=== PATIENT | male | born 1980 | race Caucasian/White ===

== ENCOUNTER 2024-06-26 19:33 | Emergency (ER) | payer BC, SELFPAY ==
[2024-06-26 19:38] VITALS: BP 178/108; PULSE 82; TEMP 36.7; O2SAT 98; BMI 26.6
[2024-06-26 19:44] VITALS: PULSE 68
--- NOTE | 2024-06-26 19:44 | ECG_ITS ---
[facility] Test Date: 2024-06-26 Pat Name: TALIA JOE Department: Room: - Gender: Male Insurance Verification Representative: : 1980 Requested By: [id number] Order Number: [id number] Reading MD: RADHA SMITH M.D. Measurements Intervals [place] Rate: 68 P: 37 DE: 144 QRS: 2 QRSD: 90 T: 26 QT: 386 QTc: 404 Interpretive Statements 1100 Sinus rhythm 5211 Minimal voltage criteria for LVH, may be normal variant 9130 borderline ECG No previous ECG available for comparison Electronically Signed On 06-27-2024 17:03:22 EDT by RADHA SMITH M.D.
--- NOTE | 2024-06-26 19:56 | ED_ITS ---
HPI HPI - General Adult General Chief complaint: Recheck/Abnormal Lab/Rx Stated complaint: HIGH BLOOD PRESSURE, HEADACHE Time Seen by Provider: 06/26/24 19:35 Source: patient and family Source information: mother, Mode of arrival: walk-in Limitations: no limitations History of Present Illness HPI narrative: This 43-year-old male presents for evaluation of a headache and an episode of dizziness at dinner tonight when he felt like he was going to pass out as well as elevated blood pressure. The patient is here with his and mother. The patient's states that several months ago they got a blood pressure cuff and were playing with that when they noticed that his blood pressure was really high in the 180s to 190s systolic. He has not seen his physician for this and his blood pressure has still been running high. Tonight at dinner when he had a headache and felt dizzy his mother brought her blood pressure cuff over and it read in the 190s over 110s. He states his headache is somewhat going away. At this time his blood pressure is 178/108. He denies any chest pain or shortness of breath. He has no abdominal pain. He denies any nausea or vomiting. He does not have any focal weakness numbness or tingling. He has not had any blurred vision or slurred speech. He has no neck pain or stiffness. He has no abdominal pain or back pain. He has no lower extremity pain or swelling. He does not smoke. He is a social drinker. Related Data Allergies Allergy/AdvReac Type Severity Reaction Status Date / Time No Known Drug Allergies Allergy Verified 06/26/24 19:38 Opioid HPI Opioid Management Most Recent Opioid Data: Last Pain Scale 5 06/26/24 20:33 06/26/24 Last ED Pain Assessment 06/26/24 20:33 Review of Systems ROS Status of ROS 10 or more systems reviewed and unremark able except as noted in history and below PFSH PFSH Social History Little interest or pleasure in doing things: not at all Feeling down, depressed, or hopeless: not at all Exam Narrative Exam Narrative: Vital signs and Nursing Notes reviewed: Patient is afebrile with a normal pulse, blood pressure is elevated 178/108, he is not hypoxic with pulse ox of 98% on room air General: Awake, alert, oriented, no acute distress, lying comfortably on the stretcher HEENT: Normocephalic atraumatic, mucous membranes are moist and pink, eyes are clear, normal conjunctiva, vision is grossly intact, no photophobia Neck: Supple, no meningeal signs Chest: Lungs are clear to auscultation with good air entry, there is no wheezing rhonchi or rales appreciated no accessory muscle use, patient is speaking in complete sentences-no chest wall tenderness to palpation CVS: Regular rate and rhythm S1-S2, no murmurs rubs or gallops, pulses are brisk and equal bilaterally ABD: Soft, nondistended, nontender, no rebound guarding or rigidity, bowel s ounds are normal, no pulsatile masses appreciated Extremities: Moving all extremities, no lower extremity tenderness or swelling noted, negative Homans' sign, pulses are brisk and equal bilaterally Skin: Normal in appearance without rash,pallor, petechiae or purpura Neuro: No focal deficits, speech is clear, no facial droop, patient is ambulatory with a steady gait Constitutional Vital Signs, click to edit/add: Last Vital Signs Temp 98.1 F 06/26/24 19:38 Pulse 72 06/26/24 20:32 Resp 12 06/26/24 20:32 BP 150/80 H 06/26/24 20:32 Pulse Ox 99 06/26/24 20:32 O2 Del Method Room Air 06/26/24 20:32 Course Vital Signs Vital signs: Vital Signs Temperature 98.1 F 06/26/24 19:38 Pulse Rate 82 06/26/24 19:38 Blood Pressure 178/108 H 06/26/24 19:38 Pulse Oximetry 98 06/26/24 19:38 Oxygen Delivery Method Room Air 06/26/24 19:38 Temperature 98.1 F 06/26/24 19:38 Pulse Rate 72 06/26/24 20:32 Respiratory Rate 12 06/26/24 20:32 Blood Pressure 150/80 H 06/26/24 20:32 Pulse Oximetry 99 06/26/24 20:32 Oxygen Delivery Method Room Air 06/26/24 20:32 Medical Decision Making MDM Narrative Medical decision making narrative: This 43-year-old male, non-smoker who is not overweight presents for evaluation of elevated blood pressure and headache. The patient's blood pressure has been running high for the past several months. The patient's explains that they obtained a blood pressure monitoring device several months ago and were playing around with that when he noted that his blood pressure was high. He has not sought any medical care since that time. Today while having dinner he had a headache and felt lightheaded like he was going to pass out. His mother was then called and brought her blood pressure machine over and it was again noted that his blood pressure was elevated. He came to the emergency department for evaluation. He denies any chest pain or shortness of breath. His headache is started to resolve and his blood pressure was in the 170s over 1 teens upon arrival. His exam is normal. He has no known neurologic deficits. He has a normal EKG. Routine cardiac labs are ordered. He has a normal white count and hemoglobin. Electrolytes are normal. Troponin is normal. He received 5 mg of oral Norvasc and Tylenol for his headache and on reevaluation he is feeling better and his blood pressure has come down to 150/80. His plans to call the family physician for a follow-up appointment in the next several days. I will discharge him home with a prescription for Norvasc to use until he can be seen by his family physician. Lab Data Lab results reviewed: Yes I reviewed the patient's lab results Labs: Lab Results 06/26/24 Range/Units 19:47 WBC 8.1 (4.0-11.0) 10^3/uL RBC 4.63 L (4.70-6.10) 10^6/uL Hgb 14.3 (14.0-18.0) g/dL Hct 41.4 L (42.0-54.0) % MCV 89.4 (80.0-94.0) fL MCH 30.9 (25.9-34.0) pg MCHC 34.5 (29.9-35.2) g/dL RDW 12.9 (11.0-15.0) % Plt Count 300 (150-450) 10^3/uL MPV 9.5 (9.5-13.5) fL Neut % (Auto) 74.4 (43.0-75.0) % Lymph % (Auto) 17.7 L (20.5-60.0) % [place] % (Auto) 6.2 (1.7-12.0) % Eos % (Auto) 1.4 (0.9-7.0) % Baso % (Auto) 0.1 L (0.2-2.0) % Neut # (Auto) 6.0 (1.4-6.5) 10^3/uL Lymph # (Auto) 1.4 (1.2-3.8) 10^3/uL [place] # (Auto) 0.5 (0.3-0.8) 10^3/uL Eos # (Auto) 0.1 (0.0-0.7) 10^3/uL Baso # (Auto) 0.0 (0.0-0.1) 10^3/uL Abs Immat Gran (auto) 0.02 (0.00-0.03) 10^3/uL Imm/Tot Granulo (auto) 0.2 (0.0-0.5) % Sodium 140 (136-145) mmol/L Potassium 3.4 L (3.5-5.1) mmol/L Chloride 102 (98-107) mmol/L Carbon Dioxide 29.6 (21.0-32.0) mmol/L Anion Gap 11.8 BUN 14.0 (7.0-18.0) mg/dL Creatinine 1.20 (0.70-1.30) mg/dL Est GFR ( Amer) >60 (>=60 mL/min/1.73m^2) Est GFR (Non-Af Amer) >60 (>=60 mL/min/1.73m^2) BUN/Creatinine Ratio 11.7 Glucose 110 H (74-106) mg/dL Calcium 9.2 (8.5-10.1) mg/dL Total Bilirubin 0.5 (0.2-1.0) mg/dL AST 25 (15-37) U/L ALT 48 (16-63) U/L Alkaline Phosphatase 120 H (46-116) U/L Troponin I High Sens 6.3 (4.0-76.1) pg/mL Total Protein 7.9 (6.4-8.2) g/dL Albumin 4.2 (3.4-5.0) g/dL Globulin 3.7 g/dL Albumin/Globulin Ratio 1.1 ECG Data Attestation: I personally reviewed and interpreted this ECG as follows: (Sinus rhythm at 68 bpm, normal axis, normal intervals, minimal voltage criteria for LVH per the EKG, no acute ST segment elevation or T wave inversion) Discharge Plan Discharge Chief Complaint: Recheck/Abnormal Lab/Rx Clinical Impression: Hypertension Patient Disposition: Home, Self-Care Time of Disposition Decision: 20:42 Condition: Good Print Language: Northern Irish Instructions: Heart Healthy Diet (ED), Hypertension (ED) Referrals: Physician,Non-Staff, MD [Primary Care Provider] - 1 week
[2024-06-26 20:00] LABS: Basophils Percent Auto 0.1 % (0.2-2.0); Eosinophils Absolute Auto 0.1 10^3/uL (0.0-0.7); Eosinophils Percent Auto 1.4 % (0.9-7.0); Hematocrit 41.4 % (42.0-54.0); Hemoglobin 14.3 g/dL (14.0-18.0); Immature Granulocytes Abs Auto 0.02 10^3/uL (0.00-0.03); Immature Granulocytes Pct Auto 0.2 % (0.0-0.5); Lymphocytes Absolute Auto 1.4 10^3/uL (1.2-3.8); Lymphocytes Percent Auto 17.7 % (20.5-60.0); Mean Corpuscular HGB Conc 34.5 g/dL (29.9-35.2); Mean Corpuscular Hemoglobin 30.9 pg (25.9-34.0); Mean Corpuscular Volume 89.4 fL (80.0-94.0); Mean Platelet Volume 9.5 fL (9.5-13.5); Monocytes Absolute Auto 0.5 10^3/uL (0.3-0.8); Monocytes Percent Auto 6.2 % (1.7-12.0); Neutrophils Percent Auto 74.4 % (43.0-75.0); Platelet Count 300 10^3/uL (150-450); Red Blood Count 4.63 10^6/uL (4.70-6.10); Red Cell Distribution Width 12.9 % (11.0-15.0); White Blood Count 8.1 10^3/uL (4.0-11.0)
[2024-06-26] MEDS: AMLODIPINE BESYLATE 5 MG TABLET PO (20:07)
[2024-06-26] MEDS: ACETAMINOPHEN 325 MG TABLET 650 MG PO (20:07)
[2024-06-26 20:17] LABS: Alanine Aminotransferase 48 U/L (16-63); Albumin Globulin Ratio 1.1; Albumin Level 4.2 g/dL (3.4-5.0); Alkaline Phosphatase 120 U/L (46-116); Anion Gap 11.8; Aspartate Amino Transferase 25 U/L (15-37); BUN Creatinine Ratio 11.7; Bilirubin Total 0.5 mg/dL (0.2-1.0); Calcium 9.2 mg/dL (8.5-10.1); Carbon Dioxide 29.6 mmol/L (21.0-32.0); Chloride 102 mmol/L (98-107); Estimated GFR (African America >60 (>=60 mL/min/1.73m^2); Estimated GFR (Non-African Ame >60 (>=60 mL/min/1.73m^2); Globulin 3.7 g/dL; Glucose 110 mg/dL (74-106); Potassium 3.4 mmol/L (3.5-5.1); Sodium 140 mmol/L (136-145); Total Protein 7.9 g/dL (6.4-8.2)
[2024-06-26 20:19] LABS: Troponin I High Sensitivity 6.3 pg/mL (4.0-76.1)
[2024-06-26 20:32] VITALS: BP 150/80; PULSE 72; O2SAT 99
== END 2024-06-26 20:56 | disposition home or self-care (01) ==
PROVIDERS: Emergency Provider Emergency Medicine; PCP Family Medicine
DX: I10 Essential (primary) hypertension (principal)
CPT/HCPCS: 36415; 80053; 84484; 85025; 93005; 99285